=== PATIENT | female | born 1980 | race Caucasian/White ===

== ENCOUNTER 2020-05-19 13:31 | Inpatient (IN) | payer OTHER ==
[2020-05-19] MEDS ORDERED: morphine SULFATE 4 MG/ML VIAL IVPUSH ONE ×2 (14:15→17:52)
[2020-05-19] MEDS ORDERED: LACTATED RINGERS SOLUTION 1000 ML INFUS.BAG IV STA (14:19)
[2020-05-19] MEDS ORDERED: morphine SULFATE 4 MG/ML VIAL ONE ×2 (14:26→18:16)
[2020-05-19 14:43] LABS: EOS % 0.6 % (0-4.5); HEMATOCRIT 36.3 % (32.4-45.2); LYMPH % 26.7 % (8-40); MCH 33.1 pg (25.7-33.7); MCHC 33.2 g/dl (32.0-36.0); MEAN CELL VOLUME 99.9 fl (80-96); MEAN PLT VOLUME 9.6 fl (7.5-11.1); MONO % 8.7 % (3.8-10.2); PLATELET COUNT 236 K/MM3 (134-434); RBC 3.63 M/mm3 (3.60-5.2); RDW 16.2 % (11.6-15.6); WHITE BLOOD COUNT 4.3 K/mm3 (4.0-10.0)
[2020-05-19 15:01] LABS: CHLORIDE 106 mmol/L (98-107); POTASSIUM 3.6 mmol/L (3.5-5.1); SODIUM 137 mmol/L (136-145)
[2020-05-19 15:03] LABS: CALCIUM 9.5 mg/dL (8.5-10.1)
[2020-05-19 15:04] LABS: ALBUMIN 3.3 g/dl (3.4-5.0); ANION GAP 9 MMOL/L (8-16); BLOOD UREA NITROGEN 18.9 mg/dL (7-18); CO2 22 mmol/L (21-32); GLUCOSE,RANDOM 104 mg/dL (74-106); LIPASE 765 U/L (73-393)
[2020-05-19 15:07] LABS: CREATININE 0.7 mg/dL (0.55-1.3); SGOT/AST 100 U/L (15-37); SGPT/ALT 33 U/L (13-61)
[2020-05-19 15:08] LABS: BILIRUBIN,TOTAL 0.9 mg/dL (0.2-1); TOT PROT 7.4 g/dl (6.4-8.2)
[2020-05-19 15:10] LABS: ALK PHOS 70 U/L (45-117)
[2020-05-19] MEDS ORDERED: LACTATED RINGERS SOLUTION 1000 ML INFUS.BAG IV ONE (15:58)
[2020-05-19 16:00] LABS: TRIGLYCERIDES 286 mg/dL (0-150)
[2020-05-19 16:01] LABS: LDH 210 U/L (84-246)
[2020-05-19] MEDS ORDERED: LACTATED RINGERS SOLUTION 1,000 ML/1,000 ML INFUS.BAG IV SCH (21:00)
[2020-05-19] MEDS: INSULIN SLIDING SCALE (NOVOLOG) 1 VIAL SQ SCH (23:08)
[2020-05-19] MEDS: THIAMINE HCL 200 MG/2 ML VIAL IVPB SCH (23:09)
[2020-05-19] MEDS: PANTOPRAZOLE SODIUM 40 MG VIAL IVPUSH SCH (23:09)
[2020-05-19] MEDS: FOLIC ACID 1 MG TABLET (FP) PO SCH ×2 (23:10→23:59)
[2020-05-19] MEDS: morphine SULFATE 4 MG/ML VIAL IVPUSH PRN (23:59)
[2020-05-20 01:02] VITALS: BMI 41.4
[2020-05-20] MEDS: INSULIN SLIDING SCALE (NOVOLOG) 1 VIAL SQ SCH ×4 (06:59→22:18)
[2020-05-20] MEDS: morphine SULFATE 4 MG/ML VIAL IVPUSH PRN ×3 (07:03→22:16)
[2020-05-20 07:55] LABS: HEMATOCRIT 35.3 % (32.4-45.2); HEMOGLOBIN 11.6 GM/dL (10.7-15.3); MCHC 32.9 g/dl (32.0-36.0); MEAN CELL VOLUME 100.5 fl (80-96); MEAN PLT VOLUME 9.9 fl (7.5-11.1); PLATELET COUNT 186 K/MM3 (134-434); RBC 3.51 M/mm3 (3.60-5.2)
[2020-05-20 07:58] LABS: INR 1.07 (0.83-1.09); PROTHROMBIN TIME (PATIENT) 12.9 SEC (9.7-13.0)
[2020-05-20 08:00] LABS: ACTIVATED PTT 28.5 SECONDS (25.2-36.5)
[2020-05-20 08:15] LABS: POTASSIUM 3.4 mmol/L (3.5-5.1)
[2020-05-20 08:18] LABS: CALCIUM 9.4 mg/dL (8.5-10.1)
[2020-05-20 08:19] LABS: ALBUMIN 3.1 g/dl (3.4-5.0); BLOOD UREA NITROGEN 9.9 mg/dL (7-18); MAGNESIUM 1.4 mg/dL (1.8-2.4)
[2020-05-20 08:21] LABS: CREATININE 0.6 mg/dL (0.55-1.3)
[2020-05-20 08:22] LABS: PHOSPHOROUS 2.6 mg/dL (2.5-4.9)
[2020-05-20 08:23] LABS: BILIRUBIN,TOTAL 1.8 mg/dL (0.2-1); TOT PROT 6.6 g/dl (6.4-8.2)
[2020-05-20] MEDS ORDERED: LISINOPRIL 20 MG TABLET PO ONE (09:26)
[2020-05-20] MEDS ORDERED: MAGNESIUM 1GM/D5W - 1 GM/100 ML IVPB IVPB ONE (09:36)
[2020-05-20] MEDS ORDERED: POTASSIUM CHLORIDE TABS 20 MEQ TABLET.ER (FP) PO ONE (09:36)
[2020-05-20] MEDS: PANTOPRAZOLE SODIUM 40 MG VIAL IVPUSH SCH ×2 (10:12→22:15)
[2020-05-20] MEDS: THIAMINE HCL 200 MG/2 ML VIAL IVPB SCH (10:12)
[2020-05-20] MEDS: MULTIVITAMINS (DAILY MVI) TABLET (FP) PO SCH (10:12)
[2020-05-20] MEDS: FOLIC ACID 1 MG TABLET (FP) PO SCH (10:12)
[2020-05-20] MEDS: LACTATED RINGERS SOLUTION 1,000 ML/1,000 ML INFUS.BAG IV SCH (10:50)
[2020-05-20] MEDS: ENOXAPARIN NA (PORCINE) 40 MG/0.4 ML DISP.SYRIN SQ SCH (10:51)
[2020-05-21] MEDS: morphine SULFATE 4 MG/ML VIAL IVPUSH PRN (03:14)
[2020-05-21] MEDS: INSULIN SLIDING SCALE (NOVOLOG) 1 VIAL SQ SCH ×2 (08:33→11:20)
[2020-05-21 08:40] LABS: BASO % 0.8 % (0-2.0); EOS % 1.8 % (0-4.5); HEMATOCRIT 32.4 % (32.4-45.2); HEMOGLOBIN 10.9 GM/dL (10.7-15.3); MCH 34.1 pg (25.7-33.7); MCHC 33.6 g/dl (32.0-36.0); MEAN CELL VOLUME 101.7 fl (80-96); MEAN PLT VOLUME 10.3 fl (7.5-11.1); MONO % 9.3 % (3.8-10.2); NEUT % 52.1 % (42.8-82.8); PLATELET COUNT 144 K/MM3 (134-434); RBC 3.19 M/mm3 (3.60-5.2); RDW 15.3 % (11.6-15.6); WHITE BLOOD COUNT 4.7 K/mm3 (4.0-10.0)
[2020-05-21 08:58] LABS: POTASSIUM 4.1 mmol/L (3.5-5.1)
[2020-05-21 09:03] LABS: CALCIUM 9.3 mg/dL (8.5-10.1)
[2020-05-21 09:04] LABS: ALBUMIN 2.6 g/dl (3.4-5.0); BLOOD UREA NITROGEN 4.1 mg/dL (7-18); MAGNESIUM 1.4 mg/dL (1.8-2.4)
[2020-05-21 09:06] LABS: PHOSPHOROUS 2.5 mg/dL (2.5-4.9)
[2020-05-21 09:07] LABS: CREATININE 0.6 mg/dL (0.55-1.3)
[2020-05-21 09:08] LABS: BILIRUBIN,TOTAL 1.3 mg/dL (0.2-1)
[2020-05-21] MEDS ORDERED: MAGNESIUM SULF 50% (8.12 MEQ/2 ML-1 GM VIAL) IVPB ONE (10:13)
[2020-05-21] MEDS: THIAMINE HCL 200 MG/2 ML VIAL IVPB SCH (10:44)
[2020-05-21] MEDS: ENOXAPARIN NA (PORCINE) 40 MG/0.4 ML DISP.SYRIN SQ SCH (10:44)
[2020-05-21] MEDS: PANTOPRAZOLE SODIUM 40 MG VIAL IVPUSH SCH ×2 (10:45→22:54)
[2020-05-21] MEDS: FOLIC ACID 1 MG TABLET (FP) PO SCH (10:45)
[2020-05-21] MEDS: LISINOPRIL 20 MG TABLET PO SCH (10:45)
[2020-05-21] MEDS: MULTIVITAMINS (DAILY MVI) TABLET (FP) PO SCH (10:45)
[2020-05-21] MEDS: LACTATED RINGERS SOLUTION 1,000 ML/1,000 ML INFUS.BAG IV SCH (10:54)
[2020-05-21] MEDS ORDERED: oxyCODONE HCL 5 MG TABLET PO PRN (16:39)
[2020-05-21] MEDS ORDERED: DOCUSATE SODIUM 100 MG CAPSULE (FP) PO PRN (16:39)
[2020-05-21 20:07] LABS: HEP B CORE AB, TOT Positive (Negative)
[2020-05-22 08:26] LABS: BASO % 0.6 % (0-2.0); EOS % 1.7 % (0-4.5); HEMATOCRIT 31.2 % (32.4-45.2); HEMOGLOBIN 10.5 GM/dL (10.7-15.3); LYMPH % 33.8 % (8-40); MCH 34.3 pg (25.7-33.7); MCHC 33.6 g/dl (32.0-36.0); MEAN PLT VOLUME 10.7 fl (7.5-11.1); MONO % 10.8 % (3.8-10.2); NEUT % 53.1 % (42.8-82.8); PLATELET COUNT 148 K/MM3 (134-434); RBC 3.06 M/mm3 (3.60-5.2); RDW 15.7 % (11.6-15.6); WHITE BLOOD COUNT 4.4 K/mm3 (4.0-10.0)
[2020-05-22 08:52] LABS: POTASSIUM 3.8 mmol/L (3.5-5.1)
[2020-05-22 08:55] LABS: CALCIUM 8.9 mg/dL (8.5-10.1)
[2020-05-22 08:56] LABS: ALBUMIN 2.7 g/dl (3.4-5.0); BLOOD UREA NITROGEN 3.2 mg/dL (7-18); MAGNESIUM 1.8 mg/dL (1.8-2.4)
[2020-05-22 08:58] LABS: CREATININE 0.6 mg/dL (0.55-1.3)
[2020-05-22 08:59] LABS: PHOSPHOROUS 2.4 mg/dL (2.5-4.9)
[2020-05-22 09:00] LABS: BILIRUBIN,TOTAL 0.8 mg/dL (0.2-1)
[2020-05-22] MEDS: FOLIC ACID 1 MG TABLET (FP) PO SCH (09:38)
[2020-05-22] MEDS: PANTOPRAZOLE SODIUM 40 MG VIAL IVPUSH SCH (09:38)
[2020-05-22] MEDS: LISINOPRIL 20 MG TABLET PO SCH (09:38)
[2020-05-22] MEDS: THIAMINE HCL 200 MG/2 ML VIAL IVPB SCH (09:38)
[2020-05-22] MEDS: ENOXAPARIN NA (PORCINE) 40 MG/0.4 ML DISP.SYRIN SQ SCH (09:39)
[2020-05-22] MEDS: MULTIVITAMINS (DAILY MVI) TABLET (FP) PO SCH (09:39)
[2020-05-22] MEDS ORDERED: NAPH,MB-DB/K PH,MBDB POWDER PACKET PO ONE (14:22)
[2020-05-22 14:45] VITALS: BP 127/73; PULSE 56; TEMP 98
== END 2020-05-22 15:53 | disposition home or self-care (01) | DRG 282 ==
LOC: JER 13:31 → JERBED 18:23 → J6S 20:58
PROVIDERS: ADMIT Internal Medicine; ATTEND Internal Medicine
DX: K85.20 Alcohol induced acute pancreatitis without necrosis or infection (principal); F10.10 Alcohol abuse, uncomplicated; E66.9 Obesity, unspecified; Z68.41 Body mass index [BMI] 40.0-44.9, adult; R74.01 Elevation of levels of liver transaminase levels; I16.0 Hypertensive urgency; E83.42 Hypomagnesemia; E87.6 Hypokalemia; F14.90 Cocaine use, unspecified, uncomplicated; F12.90 Cannabis use, unspecified, uncomplicated; E87.2 Acidosis; F17.210 Nicotine dependence, cigarettes, uncomplicated
CPT/HCPCS: 36415; 71046-TC-FY; 74177-TC; 76705-TC; 80053; 82550; 82962; 83036; 83605; 83615; 83690; 83735; 84100; 84478; 84484; 84703; 85025; 85027; 85610; 85730; 86704; 86706; 86707; 86708; 86709; 86803; 87340; 93005; 93010; 99285-25; C9803; Q9967; U0003

== ENCOUNTER 2020-07-13 05:02 | Emergency (ER) | payer OTHER ==
[2020-07-13 05:16] VITALS: BMI 41.8
[2020-07-13 06:29] LABS: INR 0.95 (0.83-1.09); PROTHROMBIN TIME (PATIENT) 11.5 SEC (9.7-13.0)
[2020-07-13 06:30] LABS: BASO % 0.4 % (0-2.0); EOS % 0.5 % (0-4.5); HEMATOCRIT 34.9 % (32.4-45.2); HEMOGLOBIN 11.8 GM/dL (10.7-15.3); LYMPH % 29.4 % (8-40); MCH 33.2 pg (25.7-33.7); MCHC 33.8 g/dl (32.0-36.0); MEAN CELL VOLUME 98.5 fl (80-96); MEAN PLT VOLUME 9.8 fl (7.5-11.1); MONO % 6.1 % (3.8-10.2); NEUT % 63.6 % (42.8-82.8); PLATELET COUNT 208 K/MM3 (134-434); RBC 3.54 M/mm3 (3.60-5.2); RDW 17.6 % (11.6-15.6); WHITE BLOOD COUNT 7.2 K/mm3 (4.0-10.0)
[2020-07-13 07:12] LABS: CHLORIDE 104 mmol/L (98-107); SODIUM 137 mmol/L (136-145)
[2020-07-13 07:13] LABS: ALBUMIN 3.1 g/dl (3.4-5.0); ANION GAP 4 MMOL/L (8-16); BLOOD UREA NITROGEN 13.4 mg/dL (7-18); CALCIUM 9.1 mg/dL (8.5-10.1); CO2 29 mmol/L (21-32); GLUCOSE,RANDOM 136 mg/dL (74-106); LIPASE 112 U/L (73-393)
[2020-07-13 07:16] LABS: CREATININE 0.8 mg/dL (0.55-1.3); SGOT/AST 24 U/L (15-37); SGPT/ALT 19 U/L (13-61)
[2020-07-13 07:18] LABS: BILIRUBIN,TOTAL 0.6 mg/dL (0.2-1)
[2020-07-13 07:19] LABS: ALK PHOS 73 U/L (45-117)
[2020-07-13 07:21] LABS: N-TERMINAL BNP 93.6 pg/ml (5-125)
[2020-07-13] MEDS ORDERED: LACTATED RINGERS SOLUTION 1,000 ML/1,000 ML INFUS.BAG IV STA (07:53)
[2020-07-13] MEDS ORDERED: KETOROLAC TROMETHAMINE 30 MG/1 ML VIAL IVPUSH ONE (07:53)
[2020-07-13] MEDS ORDERED: KETOROLAC TROMETHAMINE 30 MG/1 ML VIAL ONE (07:54)
[2020-07-13] MEDS ORDERED: ACETAMINOPHEN 1000 MG/100 ML VIAL (NON FORMULARY) IVPB ONE (09:34)
[2020-07-13] MEDS ORDERED: ACETAMINOPHEN INJECTION 100 ML IVPB ONE (10:59)
[2020-07-13 13:24] VITALS: BP 137/84; PULSE 81; TEMP 98.1
== END 2020-07-13 13:24 | disposition home or self-care (01) ==
LOC: JER 05:02
PROC: 3E0333Z Introduction of Anti-inflammatory into Peripheral Vein, Percutaneous Approach (ICD-10-PCS; principal; 2020-07-13)
PROC: 3E0333Z Introduction of Anti-inflammatory into Peripheral Vein, Percutaneous Approach (ICD-10-PCS; 2020-07-13)
PROC: 3E0337Z Introduction of Electrolytic and Water Balance Substance into Peripheral Vein, Percutaneous Approach (ICD-10-PCS; 2020-07-13)
DX: M54.6 Pain in thoracic spine (principal); R07.89 Other chest pain
CPT/HCPCS: 36415; 71045-TC-FY; 71275-TC; 76705-TC; 80053; 82550; 83690; 83880; 84484; 84703; 85025; 85610; 93005; 93010; 99285-25; J0131; Q9967